=== PATIENT | female | born 1930 | race Caucasian/White ===

== ENCOUNTER 2017-04-20 13:19 | Emergency (ER) | payer MEDICARE, MEDICAID ==
[2017-04-20] MEDS ORDERED: 0.9 % SODIUM CHLORIDE 1,000 ML BAG IV ONE (14:40)
--- NOTE | 2017-04-20 14:44 | Emergency Department Record ---
History of Present Illness - General Chief complaint: Hypergylcemia Stated complaint: HIGH BLOOD SUGAR/ABDOMINAL PAIN Time Seen by Provider: 04/20/17 14:38 Source: Patient, Family Mode of Arrival: Ambulatory Limitations: No limitations - History of Present Illness Initial comments: 86 yo female presents with abdominal pain, nausea, some mild spitting up, loss of appetite. She has had some abdominal pain for several months. Her current pain is now left sided for the last 4 days that is different. She is having bowel movements that are small and firm. No blood. No fevers. She does have a history of SBO, Appy, jeet, hysterectomy. Her blood sugars are running above her baseline at the 200's. No hematuria. No rash on the abdomen. PCP is [facility]. GI is [facility], Surgery is [facility] Onset/Timin -: Week(s) Location: Other Severity: Moderate Severity scale (1-10): 4 Quality: Aching Consistency: Constant Improves with: None Worsens with: None Context: History of similar Associated Symptoms: Nausea/vomiting - [place] Coma Scale Eye Response: (4) Open spontaneously Motor Response: (6) Obeys commands Verbal Response: (5) Oriented [place] Total: 15 - Related Data Home Medications Medication Instructions Recorded Confirmed Last Taken Gabapentin [Neurontin] 400 mg PO BID 04/20/17 04/20/17 Unknown Insulin Aspart Protam & Aspart 6 unit SQ BIDINS 04/20/17 04/20/17 Unknown [Novolog Mix 70-30 Flexpen Syrn] Previous Rx's Medication Instructions Recorded Albuterol Sulfate 0.083% [Neb] 3 ml NEB Q4HR #120 07/20/16 Cephalexin [Keflex] 500 mg PO QID #28 cap 04/20/17 Allergies Allergy/AdvReac Type Severity Reaction Status Date / Time acetaminophen [From Vicodin] Allergy HYPERSENSIT Verified 04/20/17 14:29 IVITY codeine Allergy HIVES Verified 04/20/17 14:29 hydrocodone bitartrate Allergy HYPERSENSIT Verified 04/20/17 14:29 [From Vicodin] IVITY oxycodone HCl Allergy HYPERSENSIT Verified 04/20/17 14:29 [From OxyContin] IVITY Penicillins Allergy HIVES Verified 04/20/17 14:29 hydromorphone HCl AdvReac HYPERSENSIT Verified 04/20/17 14:29 [From Dilaudid] IVITY meperidine HCl [From Demerol] AdvReac HYPERSENSIT Verified 04/20/17 14:29 IVITY oxycodone [Oxycodone] AdvReac HYPERSENSIT Verified 04/20/17 14:29 IVITY Travel Screening - Travel/Exposure Within Last 30 Days Have you traveled within the last 30 days?: No Review of Systems Constitutional: Denies: Chills, Fever, Malaise, Weakness Eyes: Denies: Eye discharge ENT: Denies: Congestion, Throat pain Respiratory: Denies: Cough, Dyspnea, Hemoptysis, Stridor, Wheezes Cardiovascular: Denies: Chest pain, Palpitations, Syncope Endocrine: Reports: Fatigue. Denies: Polydipsia, Polyuria Gastrointestinal: Reports: Abdominal pain, Constipation, Diarrhea, Nausea, Vomiting. Denies: Hematemesis, Hematochezia, Melena Genitourinary: Reports: Dysuria, Frequency, Incontinence (chronic) Musculoskeletal: Denies: Arthralgia, Back pain, Joint swelling, Myalgia Skin: Denies: Bruising, Change in color, Rash Neurological: Denies: Confusion, Numbness, Weakness Psychiatric: Denies: Anxiety Hematological/Lymphatic: Denies: Blood Clots, Easy bleeding, Easy bruising, Swollen glands Past Medical History - SOCIAL HISTORY Smoking Status: Current every day smoker Alcohol Use: None Drug Use: None - RESPIRATORY Hx Respiratory Disorders: Yes Hx Asthma: No Hx Bronchitis: No Hx COPD: Yes Hx Dyspnea: Yes Hx Sleep Apnea: Yes Hx of CPAP: Yes Comment:: wears oxygen at night 3L - CARDIOVASCULAR Hx Cardio Disorders: Yes Hx Hypertension: Yes - NEURO Hx Neuro Disorders: Yes Hx TIA: Yes - GI Hx GI Disorders: Yes Hx Abdominal Pain: Yes Hx Obstructive Bowel: Yes - Hx Genitourinary Disorders: No - ENDOCRINE Hx Endocrine Disorders: Yes Hx Diabetes: Yes (Type II) - MUSCULOSKELETAL Hx Musculoskeletal Disorders: Yes Hx Arthritis: Yes Hx Fibromyalgia: Yes - PSYCH Hx Psych Problems: Yes Hx Anxiety: Yes Hx Depression: Yes - HEMATOLOGY/ONCOLOGY Hx Hematology/Oncology Disorders: Yes Hx Cancer: Yes (Breast cancer) Hx Radiation Therapy: Yes Family Medical History Any Significant Family History?: Yes Hx Alcohol Use: Father, Mother, Children Hx Cancer: Father, Grandparents Hx Depression: Mother Physical Exam - General General Appearance: Alert, Oriented x3, Cooperative, No acute distress Limitations: No limitations - Head Head exam: Atraumatic, Normal inspection - Eye Eye exam: Normal appearance, Conjunctival injection - ENT ENT exam: Normal exam, Mucous membranes moist Ear exam: Normal external inspection Nasal Exam: Normal inspection Mouth exam: Normal external inspection - Neck Neck exam: Normal inspection - Respiratory Respiratory exam: Normal lung sounds bilaterally. negative: Respiratory distress - Cardiovascular Cardiovascular Exam: Regular rate, Normal rhythm, Normal heart sounds Peripheral Pulses: 2+: Radial (R), Radial (L) - GI/Abdominal GI/Abdominal exam: Soft, Tenderness (mild LLQ tenderness on palpation). negative: Distended, Guarding, Rebound, Rigid - Rectal Rectal exam: Deferred - exam: Deferred - Extremities Extremities exam: Normal inspection, Full ROM, Normal capillary refill. negative: Tenderness - Back Back exam: Reports: Normal inspection. Denies: CVA tenderness (R), CVA tenderness (L) - Neurological Neurological exam: Alert, Oriented X3 - Psychiatric Psychiatric exam: Normal affect, Normal mood - Skin Skin exam: Dry, Intact, Normal color, Warm Course Vital Signs 04/20/17 14:20 Temperature 97.8 F Pulse Rate 112 H Respiratory 20 Rate Blood Pressure 142/88 Pulse Ox 91 L - Reevaluation(s) Reevaluation #1: The labs were reviewed Glucose is 299 with normal HCO3 and AG The US is consistent with UTI 04/20/17 16:19 The UA is consistent with infection with N+LE+,WBC+,Bacteria. The patient was given a dose of Rocephin in the ED The CT scan of the abdomen and pelvis was negative for acute process, no obstruction, no stones, very small left pleural effusion noted. Normal Kidneys. She will be DC home on antibiotics with a culture of the urine being sent. 04/20/17 18:31 04/20/17 18:34 Medical Decision Making - Lab Data Result diagrams: 04/20/17 15:20 04/20/17 15:20 Disposition Disposition: Discharge Clinical Impression: Urinary tract infection Qualifiers: Urinary tract infection type: acute cystitis Hematuria presence: without hematuria Qualified Code(s): N30.00 - Acute cystitis without hematuria Disposition: Home, Self-Care Condition: (1) Good Instructions: Urinary Tract Infection in Women (ED) Additional Instructions: Stay well hydrated Call your doctor for close follow up of your urinary tract infection and follow up of the culture of the urine Return to the ER if worse, fever, vomiting, diarrhea or any new concerns Prescriptions: Cephalexin [Keflex] 500 mg PO QID #28 cap Forms: Patient Portal Access Time of Disposition: 18:35 Quality - Quality Measures Quality Measures: N/A - Blood Pressure Screening Does Patient Have Any of the Following: No Blood Pressure Classification: Pre-Hypertensive BP Reading Systolic Measurement: 137 Diastolic Measurement: 57 Screening for High Blood Pressure: < Pre-Hypertensive BP, F/U Documented > [ G8950] Pre-Hypertensive Follow-up Interventions: Referral to alternative/primary care provider.
[2017-04-20 15:41] LABS: BASO % 0.4 % (0-6); EOS % 1.1 % (0-6); GRAN % 72.9 % (47-80); HEMATOCRIT 42.4 % (35.0-47.0); HEMOGLOBIN 13.8 gm/dl (11.6-16.0); MEAN CELL VOLUME 94.6 fl (81-97); MEAN CORPUSCULAR HEMOGLOBIN 30.8 pg (27-33); MEAN CORPUSCULAR HGB CONC 32.5 g/dl (32-36); MEAN PLATELET VOLUME 12.2 fl (7.4-10.4); MONO % 6.6 % (0-9); PLATELET COUNT 234 K/uL (130-400); RED BLOOD COUNT 4.48 M/uL (3.80-5.40); RED CELL DISTRIBUTION WIDTH 13.4 % (11.5-14.5); WHITE BLOOD COUNT W/O DIFF 8.3 K/uL (4.2-12.2)
[2017-04-20 15:50] LABS: URINE APPEARANCE CLEAR; URINE BILIRUBIN NEGATIVE (NEGATIVE); URINE BLOOD MODERATE (NEGATIVE); URINE COLOR YELLOW; URINE GLUCOSE (UA) NEGATIVE (NEGATIVE); URINE KETONE NEGATIVE (NEGATIVE); URINE LEUKOCYTE ESTERASE SMALL (NEGATIVE); URINE NITRITE POSITIVE (NEGATIVE); URINE PROTEIN NEGATIVE (NEGATIVE); URINE UROBILINOGEN 0.2 E.U./dL (0.20 - 1.00)
[2017-04-20 16:00] LABS: ALB/GLOB RATIO 1.3 (1.1-1.8); ALBUMIN 3.8 g/dL (4.0-5.0); ALKALINE PHOSPHATASE 96 U/L (35-104); ALT/SGPT 16 U/L (<33); AST/SGOT 24 U/L (10.0-35.0); BLOOD UREA NITROGEN 43.9 mg/dL (17.4-49.2); CREATININE 0.8 mg/dL (0.5-0.9); EST GLOMERULAR FILTRATION RATE > 60 mL/min; GLUCOSE,RANDOM 299 mg/dL (74-109); LIPASE 51 U/L (13-60); TOTAL PROTEIN 6.8 g/dL (6.6-8.7)
[2017-04-20 16:10] LABS: URINE BACTERIA 2+; URINE EPITHELIAL CELLS NONE SEEN (FEW)
[2017-04-20] MEDS ORDERED: CEFTRIAXONE SODIUM 1 GM in 0.9 % SODIUM CHLORIDE 100ML 100 ML IVPB ONE (16:20)
[2017-04-20] MEDS ORDERED: ALBUTEROL SULFATE (0.083%) 2.5 MG/3 ML NEB INH ONE (16:51)
--- NOTE | 2017-04-21 07:57 | CT SCAN REPORT ---
EXAM: CT OF THE ABDOMEN AND PELVIS WITH CONTRAST HISTORY: LEFT LOWER QUADRANT PAIN. TECHNIQUE: Sequential axial images were obtained from the diaphragms through the ischiorectal fossa after intravenous and oral administration of 100 ml of Omnipaque 300 contrast material. Sagittal and coronal reformatted images were performed. FINDINGS: There is a small left pleural effusion. There is chronic change in both lung bases. The liver appears normal. The gallbladder has been surgically removed. The pancreas and spleen appear normal. There is bilateral adrenal hyperplasia. There are benign appearing cysts in both kidneys. No CT findings suggestive of obstructive uropathy. The small bowel appears normal. There is colonic diverticulosis. No evidence of diverticulitis. The patient is status post ventral hernia repair. The urinary bladder appears normal. Postop surgical change in the left hip. There is osteopenia and degenerative change of the lumbar spine. Post vertebroplasty change at L2. IMPRESSION: 1. NO ACUTE ABDOMINAL OR PELVIC DISEASE PROCESS. THERE IS COLONIC DIVERTICULOSIS WITHOUT EVIDENCE OF DIVERTICULITIS. 2. THE PATIENT IS STATUS POST VENTRAL HERNIA REPAIR. 3. BENIGN APPEARING CYSTS IN BOTH KIDNEYS. 4. SMALL LEFT PLEURAL EFFUSION. CHRONIC CHANGE BOTH LUNG BASES. JOB NUMBER: [id number] [facility]
== END 2017-04-20 19:08 | disposition home or self-care (01) ==
LOC: ER 13:19
DX: N30.00 Acute cystitis without hematuria (principal); R11.2 Nausea with vomiting, unspecified; R10.32 Left lower quadrant pain; E11.9 Type 2 diabetes mellitus without complications; Z79.4 Long term (current) use of insulin; I10 Essential (primary) hypertension; F17.210 Nicotine dependence, cigarettes, uncomplicated
CPT/HCPCS: 99284 ×2; 96374; 96361; 83690; 85025; 80053; 81001; 74177; 94640; Q9967; J7030; J7613

== ENCOUNTER 2017-04-24 13:13 | Emergency (ER) | payer MEDICARE, MEDICAID ==
[2017-04-24 13:25] LABS: URINE APPEARANCE CLEAR; URINE BILIRUBIN NEGATIVE (NEGATIVE); URINE BLOOD NEGATIVE (NEGATIVE); URINE COLOR YELLOW; URINE GLUCOSE (UA) NEGATIVE (NEGATIVE); URINE KETONE NEGATIVE (NEGATIVE); URINE LEUKOCYTE ESTERASE NEGATIVE (NEGATIVE); URINE NITRITE NEGATIVE (NEGATIVE); URINE PROTEIN NEGATIVE (NEGATIVE); URINE UROBILINOGEN 0.2 E.U./dL (0.20 - 1.00)
--- NOTE | 2017-04-24 13:42 | Emergency Department Record ---
History of Present Illness - General Chief complaint: Fatigue and Weakness Stated complaint: recheck urine Time Seen by Provider: 04/24/17 13:27 Source: Patient Mode of Arrival: Ambulatory Limitations: No limitations - History of Present Illness Initial comments: The patient is here due to not feeling well for 5 days. She was in the ER here 4 days ago and had lab work, a UA, and an abdominal CT that only demonstrated a UTI. The culture did come back to day and was resistant to the Keflex so we did call the patient to return to the ER for recheck. She states she is feeling no better and is having trouble breathing, still fatigued, and weak. She is still having mild lower abdominal pain but denies any significant back pain, ANY chest pain, CP with exertion or cough. She also states her blood sugars are running in the 200's. Complaint: Generalized weakness Onset/Timin -: Days(s) Location: Generalized Severity scale (1-10): 6 Quality: Dull Consistency: Intermittent Improves with: None Worsens with: None Associated Symptoms: Loss of appetite, Shortness of breath - [place] Coma Scale Eye Response: (4) Open spontaneously Motor Response: (6) Obeys commands Verbal Response: (5) Oriented [place] Total: 15 - Related Data Previous Rx's Medication Instructions Recorded Albuterol Sulfate 0.083% [Neb] 3 ml NEB Q4HR #120 07/20/16 Cephalexin [Keflex] 500 mg PO QID #28 cap 04/20/17 Nitrofurantoin Ida [Macrobid] 100 mg PO BID #14 capsule 04/24/17 Allergies Allergy/AdvReac Type Severity Reaction Status Date / Time acetaminophen [From Vicodin] Allergy HYPERSENSIT Verified 04/24/17 13:23 IVITY codeine Allergy HIVES Verified 04/24/17 13:23 hydrocodone bitartrate Allergy HYPERSENSIT Verified 04/24/17 13:23 [From Vicodin] IVITY oxycodone HCl Allergy HYPERSENSIT Verified 04/24/17 13:23 [From OxyContin] IVITY Penicillins Allergy HIVES Verified 04/24/17 13:23 hydromorphone HCl AdvReac HYPERSENSIT Verified 04/24/17 13:23 [From Dilaudid] IVITY meperidine HCl [From Demerol] AdvReac HYPERSENSIT Verified 04/24/17 13:23 IVITY oxycodone [Oxycodone] AdvReac HYPERSENSIT Verified 04/24/17 13:23 IVITY Travel Screening - Travel/Exposure Within Last 30 Days Have you traveled within the last 30 days?: No - Travel/Exposure Within Last Year Have you traveled outside the [place] in the last year?: No - Additonal Travel Details Have you been exposed to anyone with a communicable illness?: No Review of Systems Constitutional: Reports: Malaise. Denies: Chills, Fever Eyes: Denies: Eye discharge ENT: Denies: Congestion Respiratory: Reports: Dyspnea. Denies: Cough Cardiovascular: Denies: Arrhythmia, Chest pain Endocrine: Reports: Fatigue Past Medical History - SOCIAL HISTORY Smoking Status: Current every day smoker Alcohol Use: None Drug Use: None - RESPIRATORY Hx Respiratory Disorders: Yes Hx Asthma: No Hx Bronchitis: No Hx COPD: Yes Hx Dyspnea: Yes Hx Sleep Apnea: Yes Hx of CPAP: Yes Comment:: wears oxygen at night 3L - CARDIOVASCULAR Hx Cardio Disorders: Yes Hx Hypertension: Yes - NEURO Hx Neuro Disorders: Yes Hx TIA: Yes - GI Hx GI Disorders: Yes Hx Abdominal Pain: Yes Hx Obstructive Bowel: Yes - Hx Genitourinary Disorders: No - ENDOCRINE Hx Endocrine Disorders: Yes Hx Diabetes: Yes (Type II) - MUSCULOSKELETAL Hx Musculoskeletal Disorders: Yes Hx Arthritis: Yes Hx Fibromyalgia: Yes - PSYCH Hx Psych Problems: Yes Hx Anxiety: Yes Hx Depression: Yes - HEMATOLOGY/ONCOLOGY Hx Hematology/Oncology Disorders: Yes Hx Cancer: Yes (Breast cancer) Hx Radiation Therapy: Yes Family Medical History Any Significant Family History?: Yes Hx Alcohol Use: Father, Mother, Children Hx Cancer: Father, Grandparents Hx Depression: Mother Physical Exam - General General Appearance: Alert, Oriented x3, Cooperative, No acute distress - Head Head exam: Atraumatic, Normocephalic, Normal inspection - Eye Eye exam: Normal appearance, PERRL - Neck Neck exam: Normal inspection, Full ROM. negative: Tenderness - Respiratory Respiratory exam: Rhonchi (mildly at the bases.). negative: Normal lung sounds bilaterally, Accessory muscle use, Decreased breath sounds, Rales, Respiratory distress - Cardiovascular Cardiovascular Exam: Regular rate, Normal rhythm, Normal heart sounds - GI/Abdominal GI/Abdominal exam: Soft, Normal bowel sounds. negative: Tenderness - Extremities Extremities exam: Normal inspection, Full ROM, Normal capillary refill. negative: Tenderness - Neurological Neurological exam: Alert, Normal gait (The patient is ambulating with her walker normally.). negative: Abnormal gait, Motor sensory deficit Course Vital Signs 04/24/17 13:23 Temperature 98.4 F Pulse Rate 107 H Respiratory 24 Rate Blood Pressure 141/108 Pulse Ox 94 L - Reevaluation(s) Reevaluation #1: We did recheck the patient's urine and it was normal. I did explain to the patient that due to the urine being normal I cannot attribute her complaints to a UTI. I also explained to her that to properly evaluate her fatigue, mild dyspnea, and weakness we would have to do a full evaluation including lab work, CXR, and at least an EKG. The patient is very reluctant to have ANYTHING done in the ER and is refusing. I explained to her that I can change her Abx but that really can not attribute her symptoms to the urine. I also explained to her that it could be anything from CHF, cardiac ischemia, pneumonia, or hypothyroid dz. By NOT doing the workup we could not be held liable for not properly diagnosing her symptoms and treating her illness. The patient has proper decision making capacity and understands and accepts the risks. She was told to see her PCP PING and to return to the ER for any problems or if she changes her mind about being evaluated further. 04/24/17 13:52 Medical Decision Making - Lab Data Lab Results 04/24/17 Range/Units 13:20 Urine Color Yellow Urine Appearance Clear Urine pH 6.0 (5.0-8.0) Ur Specific [place] <= 1.005 (1.002-1.030) Urine Protein Negative (NEGATIVE) Urine Glucose (UA) Negative (NEGATIVE) Urine Ketones Negative (NEGATIVE) Urine Blood Negative (NEGATIVE) Urine Nitrite Negative (NEGATIVE) Urine Bilirubin Negative (NEGATIVE) Urine Urobilinogen 0.2 (0.20 - 1.00) E.U./dL Ur Leukocyte Esterase Negative (NEGATIVE) Disposition Disposition: Discharge Clinical Impression: Urinary tract infection Qualifiers: Urinary tract infection type: site unspecified Hematuria presence: without hematuria Qualified Code(s): N39.0 - Urinary tract infection, site not specified Disposition: Home, Self-Care Condition: (2) Stable Instructions: Fatigue (ED) Additional Instructions: Please stop the Keflex and start the Macrobid. Please see your PCP later this week for recheck. Return to the ER for any worsening problems or if you change your mind about being evaluated further in the ED. Prescriptions: Nitrofurantoin Ida [Macrobid] 100 mg PO BID #14 capsule Forms: Patient Portal Access Time of Disposition: 13:44 Quality - Quality Measures Quality Measures: N/A - Blood Pressure Screening View Details: Yes Does Patient Have Any of the Following: No Blood Pressure Classification: Hypertensive Reading Systolic Measurement: 141 Diastolic Measurement: 108 Screening for High Blood Pressure: < Pre-Hypertensive BP, F/U Documented > [ G8950] Pre-Hypertensive Follow-up Interventions: Referral to alternative/primary care provider.
== END 2017-04-24 13:50 | disposition home or self-care (01) ==
LOC: ER 13:13
DX: N39.0 Urinary tract infection, site not specified (principal); R06.02 Shortness of breath
CPT/HCPCS: 81003; 99282

== ENCOUNTER 2017-05-11 14:44 | Emergency (ER) | payer MEDICARE, MEDICAID ==
--- NOTE | 2017-05-11 15:30 | Emergency Department Record ---
History of Present Illness - General Chief Complaint: Abdominal Pain Stated Complaint: ABD PAIN Time Seen by Provider: 05/11/17 15:13 Source: Patient Mode of Arrival: Wheelchair Limitations: No limitations - History of Present Illness Initial Comments: The patient is here due to L sided AP which has been present for a week but worse today. She has had 3-4 loose watery stools but no vomiting or fever. She does have a hx of UTI's and has had a ventral hernia repair in the past. She denies any CP, SOB, BELIA, or back pain. The patient was here in the ER 3 weeks ago for a UTI. MD Complaint: Abdominal pain Onset/Timin -: Week(s) Location: LUQ, LLQ Radiation: None Migration to: No migration Severity: Moderate Quality: Sharp Consistency: Constant Improves With: Nothing Worsens With: Movement Associated Symptoms: Denies other symptoms - Related Data Patient : No Home Medications Medication Instructions Recorded Confirmed Last Taken Ipratropium/Albuterol Sulfate 1 puff IH DAILY 05/11/17 05/11/17 Unknown [Combivent] Previous Rx's Medication Instructions Recorded Albuterol Sulfate 0.083% [Neb] 3 ml NEB Q4HR #120 07/20/16 Cephalexin [Keflex] 500 mg PO QID #28 cap 04/20/17 Nitrofurantoin [place] [Macrobid] 100 mg PO BID #14 capsule 04/24/17 Allergies Allergy/AdvReac Type Severity Reaction Status Date / Time acetaminophen [From Vicodin] Allergy HYPERSENSIT Verified 04/24/17 13:23 IVITY codeine Allergy HIVES Verified 04/24/17 13:23 hydrocodone bitartrate Allergy HYPERSENSIT Verified 04/24/17 13:23 [From Vicodin] IVITY oxycodone HCl Allergy HYPERSENSIT Verified 04/24/17 13:23 [From OxyContin] IVITY Penicillins Allergy HIVES Verified 04/24/17 13:23 hydromorphone HCl AdvReac HYPERSENSIT Verified 04/24/17 13:23 [From Dilaudid] IVITY meperidine HCl [From Demerol] AdvReac HYPERSENSIT Verified 04/24/17 13:23 IVITY oxycodone [Oxycodone] AdvReac HYPERSENSIT Verified 09/18/17 13:23 IVITY Travel Screening - Travel/Exposure Within Last 30 Days Have you traveled within the last 30 days?: No Review of Systems Constitutional: Denies: Chills, Fever Eyes: Denies: Eye discharge ENT: Denies: Congestion Respiratory: Denies: Cough, Dyspnea Past Medical History - SOCIAL HISTORY Smoking Status: Current every day smoker - RESPIRATORY Hx Respiratory Disorders: Yes Hx Asthma: No Hx Bronchitis: No Hx COPD: Yes Hx Dyspnea: Yes Hx Sleep Apnea: Yes Hx of CPAP: Yes Comment:: wears oxygen at night 3L - CARDIOVASCULAR Hx Cardio Disorders: Yes Hx Hypertension: Yes - NEURO Hx Neuro Disorders: Yes Hx TIA: Yes - GI Hx GI Disorders: Yes Hx Abdominal Pain: Yes Hx Obstructive Bowel: Yes - Hx Genitourinary Disorders: No - ENDOCRINE Hx Endocrine Disorders: Yes Hx Diabetes: Yes (Type II) - MUSCULOSKELETAL Hx Musculoskeletal Disorders: Yes Hx Arthritis: Yes Hx Fibromyalgia: Yes - PSYCH Hx Psych Problems: Yes Hx Anxiety: Yes Hx Depression: Yes - HEMATOLOGY/ONCOLOGY Hx Hematology/Oncology Disorders: Yes Hx Cancer: Yes (Breast cancer) Hx Radiation Therapy: Yes Family Medical History Any Significant Family History?: Yes Hx Alcohol Use: Father, Mother, Children Hx Cancer: Father, Grandparents Hx Depression: Mother Physical Exam - General General Appearance: Alert, Oriented x3, Cooperative, No acute distress - Head Head exam: Atraumatic, Normocephalic, Normal inspection - Eye Eye exam: Normal appearance, PERRL - Neck Neck exam: Normal inspection, Full ROM. negative: Tenderness - Respiratory Respiratory exam: Normal lung sounds bilaterally. negative: Respiratory distress - Cardiovascular Cardiovascular Exam: Regular rate, Normal rhythm, Normal heart sounds - GI/Abdominal GI/Abdominal exam: Soft, Tenderness (There is mild to moderate L sided abdominal tenderness.). negative: Distended, Rebound, Rigid - Extremities Extremities exam: Normal inspection, Full ROM, Normal capillary refill. negative: Tenderness Course Vital Signs 05/11/17 15:14 Temperature 98.7 F Pulse Rate 98 H Respiratory 20 Rate Blood Pressure 143/74 Pulse Ox 93 L - Reevaluation(s) Reevaluation #1: The patient is doing well. I did offer her pain medicine but she declined to due a past problem with narcotics. I explained to her that her workup was all negative. She is to see her PCP for recheck and to return to the ER for any worsening problems. 05/11/17 17:33 Medical Decision Making - Data Complexity MDM Data: Labs Ordered and/or Reviewed, X-Ray Ordered and/or Reviewed - Lab Data Result diagrams: 05/11/17 15:55 05/11/17 15:55 - Radiology Data Radiology results: Report reviewed (Abd CT: Neg for any acute abnormality) Disposition Disposition: Discharge Clinical Impression: Abdominal pain Qualifiers: Abdominal location: unspecified location Qualified Code(s): R10.9 - Unspecified abdominal pain Disposition: Home, Self-Care Condition: (2) Stable Instructions: Abdominal Pain (ED) Additional Instructions: Please continue your home pain medicines. Please see your PCP tomorrow if not better. Return to the ER for any increased pain, fever, or vomiting. Forms: Patient Portal Access Time of Disposition: 17:29 Quality - Quality Measures Quality Measures: N/A - Blood Pressure Screening View Details: Yes Does Patient Have Any of the Following: No Blood Pressure Classification: Pre-Hypertensive BP Reading Systolic Measurement: 138 Diastolic Measurement: 65 Screening for High Blood Pressure: < Pre-Hypertensive BP, F/U Documented > [ G8950] Pre-Hypertensive Follow-up Interventions: Referral to alternative/primary care provider.
[2017-05-11] MEDS: SODIUM CHLORIDE 0.9% 500 ML IV ONE (15:58)
[2017-05-11] MEDS: ONDANSETRON HCL IV 4 MG/2 ML VIAL IV ONE (15:58)
[2017-05-11 16:15] LABS: BASO % 0.5 % (0-6); EOS % 1.4 % (0-6); GRAN % 66.5 % (47-80); HEMATOCRIT 42.3 % (35.0-47.0); HEMOGLOBIN 14.1 gm/dl (11.6-16.0); MEAN CELL VOLUME 93.8 fl (81-97); MEAN CORPUSCULAR HEMOGLOBIN 31.3 pg (27-33); MEAN CORPUSCULAR HGB CONC 33.3 g/dl (32-36); MEAN PLATELET VOLUME 12.1 fl (7.4-10.4); MONO % 8.6 % (0-9); PLATELET COUNT 270 K/uL (130-400); RED BLOOD COUNT 4.51 M/uL (3.80-5.40); RED CELL DISTRIBUTION WIDTH 13.3 % (11.5-14.5); WHITE BLOOD COUNT W/O DIFF 8.8 K/uL (4.2-12.2)
[2017-05-11 16:29] LABS: ALBUMIN 4.1 g/dL (4.0-5.0); ALKALINE PHOSPHATASE 99 U/L (35-104); ALT/SGPT 23 U/L (<33); AST/SGOT 26 U/L (10.0-35.0); BILIRUBIN,DIRECT 0.2 mg/dL (0-0.3); BLOOD UREA NITROGEN 19 mg/dL (8-23); CREATININE 0.7 mg/dL (0.5-0.9); EST GLOMERULAR FILTRATION RATE > 60 mL/min; GLUCOSE,RANDOM 187 mg/dL (74-109); LIPASE 56 U/L (13-60); TOTAL PROTEIN 7.3 g/dL (6.6-8.7)
[2017-05-11 16:37] LABS: URINE APPEARANCE CLEAR; URINE BILIRUBIN NEGATIVE (NEGATIVE); URINE BLOOD NEGATIVE (NEGATIVE); URINE COLOR YELLOW; URINE GLUCOSE (UA) NEGATIVE (NEGATIVE); URINE KETONE NEGATIVE (NEGATIVE); URINE LEUKOCYTE ESTERASE NEGATIVE (NEGATIVE); URINE NITRITE NEGATIVE (NEGATIVE); URINE PROTEIN NEGATIVE (NEGATIVE); URINE UROBILINOGEN 0.2 E.U./dL (0.20 - 1.00)
--- NOTE | 2017-05-13 09:09 | CT SCAN REPORT ---
DATE: 05/11/2017 at 16:08. EXAM: ABDOMEN AND PELVIS CT WITHOUT INTRAVENOUS CONTRAST. HISTORY: Acute left lower quadrant abdominal pain for two weeks. COMPARISON: Abdomen and pelvis CT dated 06/22/2016. TECHNIQUE: Contiguous axial images from the lung bases to the symphysis pubis were obtained without intravenous contrast. FINDINGS: Subpleural linear scarring of a mild to moderate degree at both lung bases. 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 Evaluation of the solid abdominal visceral organs is compromised due to lack of intravenous contrast. The liver and spleen are unremarkable. The kidneys reveal no calculi or hydronephrosis. Two hyperdense, exophytic foci in the right kidney, the largest in the mid to lower pole measuring 14 mm, unchanged. At least three similar findings in the upper pole of the left kidney measuring 11 mm unchanged. Unilocular cyst in the mid left kidney measures 2.0 cm. Stable left adrenal nodule measuring 2.2 cm consistent with benign adenoma. The pancreas is unremarkable. The gallbladder is absent. The visualized loops of small and large bowel are of normal caliber. Mild sigmoid colon diverticulosis with no evidence of acute diverticulitis. The appendix is not seen, although there are no pericecal inflammatory changes. Severe aortic calcification status post aortobifemoral bypass. No free intraperitoneal fluid or adenopathy. Mesh material along the mid ventral abdominal wall. Status post left hip arthroplasty. Bone cement in the L2 vertebral body. No lytic or blastic lesion. Severe disc disease at L3-4. IMPRESSION: 1. NO ACUTE INFLAMMATORY PROCESS OF THE ABDOMEN OR PELVIS. 2. NO INTESTINAL OBSTRUCTION. 3. MILD COLONIC DIVERTICULOSIS. 4. STATUS POST AORTOBIFEMORAL BYPASS. 5. BENIGN LEFT ADRENAL ADENOMA. 6. 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 J[facility]BER: [id number] [facility]
== END 2017-05-11 17:38 | disposition home or self-care (01) ==
LOC: ER 14:44
DX: R10.32 Left lower quadrant pain (principal); R10.12 Left upper quadrant pain; R19.7 Diarrhea, unspecified
CPT/HCPCS: 99284 ×2; 96374; 83605; 83690; 85025; 80076; 80048; 81003; 74176; J2405

== ENCOUNTER 2018-03-03 10:39 | Emergency (ER) | payer MEDICARE, MEDICAID ==
--- NOTE | 2018-03-03 12:07 | Emergency Department Record ---
History of Present Illness - General Chief complaint: Nausea, Vomiting, Diarrhea Stated complaint: NAUSEA,DIARRHEA,CONFUSION,BELIA Time Seen by Provider: 03/03/18 11:34 Source: Patient, RN notes reviewed Mode of Arrival: EMS - History of Present Illness Initial comments: patient weak and tired this am and nauseated and dry heaves slight pain in the right upper quad and PSH GB, appendectomy and hysterectomy. PCP Dr. Loida Ashford. COPD home oxygen at 4 liters per minute Onset/Timin -: Days(s) Associated Abdominal Pain: Yes Severity: Mild Severity scale (1-10): 4 Quality: Aching Consistency: Constant - Related Data Home Medications Medication Instructions Recorded Confirmed Last Taken Albuterol Sulfate 0.083% [Neb] 3 ml NEB .EVERY 4-6 HOURS PRN 03/03/18 03/03/18 1 Day Ago ~03/02/18 Previous Rx's Medication Instructions Recorded Albuterol Sulfate 0.083% [Neb] 3 ml NEB Q4HR #120 07/20/16 Omeprazole 20 mg PO DAILY #30 cap. 03/03/18 Ondansetron HCl [Zofran] 4 mg PO Q6HR #14 tablet 03/03/18 Allergies Allergy/AdvReac Type Severity Reaction Status Date / Time acetaminophen [From Vicodin] Allergy HYPERSENSIT Verified 03/03/18 10:54 IVITY codeine Allergy HIVES Verified 03/03/18 10:54 hydrocodone bitartrate Allergy HYPERSENSIT Verified 03/03/18 10:54 [From Vicodin] IVITY oxycodone HCl Allergy HYPERSENSIT Verified 03/03/18 10:54 [From OxyContin] IVITY Penicillins Allergy HIVES Verified 03/03/18 10:54 hydromorphone HCl AdvReac HYPERSENSIT Verified 03/03/18 10:54 [From Dilaudid] IVITY meperidine HCl [From Demerol] AdvReac HYPERSENSIT Verified 03/03/18 10:54 IVITY oxycodone [Oxycodone] AdvReac HYPERSENSIT Verified 03/03/18 10:54 IVITY Travel Screening - Travel/Exposure Within Last 30 Days Have you traveled within the last 30 days?: No - Travel/Exposure Within Last Year Have you traveled outside the [place] in the last year?: No - Additonal Travel Details Have you been exposed to anyone with a communicable illness?: No - Travel Symptoms Symptom Screening: None Review of Systems Reviewed: No additional complaints except as noted below Constitutional: Reports: As per HPI. Denies: Chills, Fever, Malaise, Night sweats, Weakness, Weight change Eyes: Reports: As per HPI. Denies: Eye discharge, Eye pain, Photophobia, Vision change ENT: Reports: As per HPI. Denies: Congestion, Dental pain, Ear pain, Epistaxis , Hearing loss, Throat pain Respiratory: Reports: As per HPI. Denies: Cough, Dyspnea, Hemoptysis, Stridor, Wheezes Cardiovascular: Reports: As per HPI. Denies: Arrhythmia, Chest pain, Dyspnea on exertion, Edema, Murmurs, Orthopnea, Palpitations, Paroxysmal nocturnal dyspnea, Rheumatic Fever, Syncope Endocrine: Reports: As per HPI. Denies: Fatigue, Heat or cold intolerance, Polydipsia, Polyuria Gastrointestinal: Reports: As per HPI. Denies: Abdominal pain, Constipation, Diarrhea, Hematemesis, Hematochezia, Melena, Nausea, Vomiting Genitourinary: Reports: As per HPI. Denies: Abnormal menses, Discharge, Dyspareunia, Dysuria, Frequency, Hematuria, Incontinence, Retention, Urgency Musculoskeletal: Reports: As per HPI. Denies: Arthralgia, Back pain, Gout, Joint swelling, Myalgia, Neck pain Skin: Reports: As per HPI. Denies: Bruising, Change in color, Change in hair/ nails, Lesions, Pruritus, Rash Neurological: Reports: As per HPI. Denies: Abnormal gait, Confusion, Headache, Numbness, Paresthesias, Seizure, Tingling, Tremors, Vertigo, Weakness Psychiatric: Reports: As per HPI. Denies: Anxiety, Auditory hallucinations, Depression, Homicidal thoughts, Suicidal thoughts, Visual hallucinations Hematological/Lymphatic: Reports: As per HPI. Denies: Anemia, Blood Clots, Easy bleeding, Easy bruising, Swollen glands Past Medical History - SOCIAL HISTORY Smoking Status: Current every day smoker Alcohol Use: None Drug Use: None - RESPIRATORY Hx Respiratory Disorders: Yes Hx Asthma: No Hx Bronchitis: No Hx COPD: Yes Hx Dyspnea: Yes Hx Sleep Apnea: Yes Hx of CPAP: Yes Comment:: wears oxygen at night 3L - CARDIOVASCULAR Hx Cardio Disorders: Yes Hx Hypertension: Yes - NEURO Hx Neuro Disorders: Yes Hx TIA: Yes - GI Hx GI Disorders: Yes Hx Abdominal Pain: Yes Hx Obstructive Bowel: Yes - Hx Genitourinary Disorders: No - ENDOCRINE Hx Endocrine Disorders: Yes Hx Diabetes: Yes (Type II) - MUSCULOSKELETAL Hx Musculoskeletal Disorders: Yes Hx Arthritis: Yes Hx Fibromyalgia: Yes - PSYCH Hx Psych Problems: Yes Hx Anxiety: Yes Hx Depression: Yes - HEMATOLOGY/ONCOLOGY Hx Hematology/Oncology Disorders: Yes Hx Cancer: Yes (Breast cancer) Hx Radiation Therapy: Yes Family Medical History Any Significant Family History?: Yes Hx Alcohol Use: Father, Mother, Children Hx Cancer: Father, Grandparents Hx Depression: Mother Physical Exam - General General Appearance: Alert, Oriented x3, Cooperative, No acute distress - Head Head exam: Normal inspection - Eye Eye exam: Normal appearance, PERRL Pupils: Normal accommodation - ENT ENT exam: Normal exam, Mucous membranes moist, Normal external ear exam, Normal orophraynx, TM's normal bilaterally Ear exam: Normal external inspection. negative: External canal tenderness Nasal Exam: Normal inspection. negative: Discharge, Sinus tenderness Mouth exam: Normal external inspection, Tongue normal Teeth exam: Normal inspection. negative: Dental caries Throat exam: Normal inspection. negative: Tonsillar erythema, Tonsillar exudate - Neck Neck exam: Normal inspection, Full ROM. negative: Tenderness - Respiratory Respiratory exam: Normal lung sounds bilaterally. negative: Respiratory distress - Cardiovascular Cardiovascular Exam: Regular rate, Normal rhythm, Normal heart sounds - GI/Abdominal GI/Abdominal exam: Soft, Normal bowel sounds, Tenderness (right upper quad pain mild , no rebound ,norigidity, no PS) - Rectal Rectal exam: Deferred - exam: Deferred - Extremities Extremities exam: Normal inspection, Full ROM, Normal capillary refill. negative: Tenderness - Back Back exam: Reports: Normal inspection, Full ROM. 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 ] Respiratory 17 20 Rate Blood Pressure 154/69 Blood Pressure 154/69 [Left Arm] Pulse Ox 96 98 Medical Decision Making - Data Complexity MDM Data: Labs Ordered and/or Reviewed (lipase 138), X-Ray Ordered and/or Reviewed (No signs of obstruction, Right lower lobe nodule needs CT as an outpatient) - Lab Data Result diagrams: 03/03/18 11:10 03/03/18 11:10 Disposition Clinical Impression: Nausea, Viral syndrome Disposition: Home, Self-Care Condition: (2) Stable Instructions: Acute Nausea and Vomiting (ED), Gastroenteritis (ED) Additional Instructions: clear liquids today today and bland foods tomorrow follow up with primary DR. in 5 days sooner if worse Prescriptions: Ondansetron HCl [Zofran] 4 mg PO Q6HR #14 tablet Omeprazole 20 mg PO DAILY #30 cap.dr Forms: Patient Portal Access Time of Disposition: 15:00 Quality - Quality Measures Quality Measures: N/A - Blood Pressure Screening Does Patient Have Any of the Following: No Blood Pressure Classification: Hypertensive Reading Systolic Measurement: 154 Diastolic Measurement: 69 Screening for High Blood Pressure: < First Hypertensive BP, F/U Documented > [ G8950] First Hypertensive Follow-up Interventions: Referral to alternative/primary care provider.
[2018-03-03 12:34] LABS: BASO % 0.4 % (0-6); EOS % 1.9 % (0-6); GRAN % 75.5 % (47-80); HEMATOCRIT 41.6 % (35.0-47.0); HEMOGLOBIN 13.4 gm/dl (11.6-16.0); LYMPH % 14.6 % (16-45); MEAN CELL VOLUME 97.2 fl (81-97); MEAN CORPUSCULAR HEMOGLOBIN 31.3 pg (27-33); MEAN CORPUSCULAR HGB CONC 32.2 g/dl (32-36); MEAN PLATELET VOLUME 12.4 fl (7.4-10.4); MONO % 7.6 % (0-9); PLATELET COUNT 294 K/uL (130-400); RED BLOOD COUNT 4.28 M/uL (3.80-5.40); RED CELL DISTRIBUTION WIDTH 12.9 % (11.5-14.5); WHITE BLOOD COUNT W/O DIFF 6.8 K/uL (4.2-12.2)
[2018-03-03 12:44] LABS: BLOOD UREA NITROGEN 27 mg/dL (8-23); CREATININE 0.7 mg/dL (0.5-0.9); EST GLOMERULAR FILTRATION RATE > 60 mL/min
[2018-03-03 12:45] LABS: TOTAL PROTEIN 7.5 g/dL (6.6-8.7)
[2018-03-03 12:47] LABS: GLUCOSE,RANDOM 162 mg/dL (74-109)
[2018-03-03 12:50] LABS: ALBUMIN 4.1 g/dL (4.0-5.0); ALKALINE PHOSPHATASE 142 U/L (35-104); ALT/SGPT 19 U/L (<33); AST/SGOT 22 U/L (10.0-35.0); LIPASE 138 U/L (13-60)
[2018-03-03 12:53] LABS: BILIRUBIN,DIRECT < 0.2 mg/dL (0-0.3)
[2018-03-03] MEDS ORDERED: 0.9 % SODIUM CHLORIDE 1000ML 1,000 ML IV ONE (13:19)
[2018-03-03] MEDS ORDERED: 0.9 % SODIUM CHLORIDE 500ML 500 ML IV SCH (13:30)
[2018-03-03 14:12] LABS: URINE APPEARANCE CLEAR; URINE BILIRUBIN NEGATIVE (NEGATIVE); URINE BLOOD NEGATIVE (NEGATIVE); URINE COLOR YELLOW; URINE GLUCOSE (UA) NEGATIVE (NEGATIVE); URINE KETONE NEGATIVE (NEGATIVE); URINE LEUKOCYTE ESTERASE NEGATIVE (NEGATIVE); URINE NITRITE NEGATIVE (NEGATIVE); URINE PROTEIN NEGATIVE (NEGATIVE); URINE UROBILINOGEN 0.2 E.U./dL (0.20 - 1.00)
[2018-03-03] MEDS ORDERED: ONDANSETRON HCL IV 4 MG/2 ML VIAL IVP ONE (14:51)
--- NOTE | 2018-03-04 20:36 | RADIOLOGY REPORT ---
EXAM: KNEE, RIGHT 3 VIEWS HISTORY: PAIN AND SWELLING.. TECHNIQUE: Three views of the right knee. COMPARISON: None. ENCOUNTER: Initial. FINDINGS: Three views of the right knee show normal alignment of the total joint arthroplasty. No lucency surrounding the components. No fracture. No joint effusion. Osteopenia noted. IMPRESSION: NO ACUTE ABNORMALITIES IN THE RIGHT KNEE WITH ARTHROPLASTY IN PLACE. JOB NUMBER: [id number] [facility]
--- NOTE | 2018-03-04 20:41 | RADIOLOGY REPORT ---
EXAM: ABDOMEN, ACUTE SERIES HISTORY: LEFT SIDE ABDOMINAL PAIN AND DIARRHEA. COMPARISON: CT abdomen and pelvis without contrast 05/11/2017. FINDINGS: Chest: Lung volumes are large with linear bands of scar in both lung bases. No pleural effusion or pneumothorax. Cardiomediastinal silhouette is within normal limits. There is an ill-defined opacity in the right lower lateral chest overlying the anterior right seventh rib. Abdomen: Mildly distended small bowel, similar to previous exam. There is gas in the colon. No air fluid levels. Several surgical clips are seen in the abdominal wall from previous hernia repair. Total left hip arthroplasty. Degenerative changes of the spine. There is no evidence of free air. IMPRESSION: 1. FINDINGS OF COPD. THERE MAY BE A NODULE IN THE RIGHT LOWER LUNG. CONSIDER FOLLOW-UP WITH CT SCAN OF THE THORAX WITHOUT CONTRAST, WHICH CAN BE DONE ON A NON-URGENT BASIS. 2. NONSPECIFIC BOWEL GAS PATTERN WITHOUT EVIDENCE OF MECHANICAL BOWEL OBSTRUCTION. JOB NUMBER: [id number] [facility]
== END 2018-03-03 15:43 | disposition home or self-care (01) ==
LOC: ER 10:39
DX: R11.0 Nausea (principal); B34.9 Viral infection, unspecified; E11.9 Type 2 diabetes mellitus without complications; Z79.84 Long term (current) use of oral hypoglycemic drugs; F17.210 Nicotine dependence, cigarettes, uncomplicated; J44.9 Chronic obstructive pulmonary disease, unspecified; M79.7 Fibromyalgia
CPT/HCPCS: 74022; 80048; 80076; 81003; 83690; 85025; 93005; 93010; 96361; 96374; 99284; J2405; J7040

== ENCOUNTER 2018-11-24 23:56 | Emergency (ER) | payer MEDICARE, MEDICAID ==
[2018-11-25] MEDS ORDERED: IPRATROPIUM/ALBUTEROL (0.5MG/3MG) NEB INH ONE (00:28)
[2018-11-25] MEDS ORDERED: ALBUTEROL SULFATE (0.083%) 2.5 MG/3 ML NEB INH ONE (00:33)
[2018-11-25 00:38] LABS: BASO % 0.6 % (0-6); EOS % 1.4 % (0-6); GRAN % 66.6 % (47-80); HEMATOCRIT 41.2 % (35.0-47.0); HEMOGLOBIN 12.8 gm/dl (11.6-16.0); LYMPH % 23.4 % (16-45); MEAN CELL VOLUME 97.2 fl (81-97); MEAN CORPUSCULAR HEMOGLOBIN 30.2 pg (27-33); MEAN CORPUSCULAR HGB CONC 31.1 g/dl (32-36); MEAN PLATELET VOLUME 11.4 fl (7.4-10.4); PLATELET COUNT 301 K/uL (130-400); RED BLOOD COUNT 4.24 M/uL (3.80-5.40); RED CELL DISTRIBUTION WIDTH 13.5 % (11.5-14.5)
--- NOTE | 2018-11-25 00:38 | Emergency Department Record ---
History of Present Illness - General Chief Complaint: Shortness of breath Stated Complaint: BELIA Time Seen by Provider: 11/25/18 00:05 Source: Patient Mode of Arrival: Ambulatory Limitations: No limitations - History of Present Illness Initial Comments: The patient is here due to her home oxygen pulse oximeter was reading low when she was walking today. The patient has a long hx of chronic lung dz and is on 4 liters of oxygen at all times. She states her biox is running 70% when she was ambulating but she had no worse SOB or BELIA than she normally does. Because the number was running low she decided to come to the ER. She denies any recent CP, fever, chills, worse cough, back pain or any worse BONILLA than normal. Complaint: Shortness of breath Onset/Timin -: Hour(s) Consistency: Constant Improves With: Oxygen, Rest Worsens With: Coughing, Exertion Known History Of: COPD Associated Symptoms: Cough, Sputum production Treatments Prior to Arrival: Oxygen - Related Data Home Oxygen Therapy: Yes Home Oxygen Amount: 4 Liters Previous Rx's Medication Instructions Recorded Albuterol Sulfate 0.083% [Neb] 3 ml NEB Q4HR #120 07/20/16 [Albuterol Sulfate] Omeprazole 20 mg PO DAILY #30 03/03/18 Ondansetron HCl [Zofran] 4 mg PO Q6HR #14 tablet 03/03/18 Allergies Allergy/AdvReac Type Severity Reaction Status Date / Time acetaminophen [From Vicodin] Allergy HYPERSENSIT Verified 03/03/18 10:54 IVITY codeine Allergy HIVES Verified 03/03/18 10:54 hydrocodone bitartrate Allergy HYPERSENSIT Verified 03/03/18 10:54 [From Vicodin] IVITY oxycodone HCl Allergy HYPERSENSIT Verified 03/03/18 10:54 [From OxyContin] IVITY Penicillins Allergy HIVES Verified 03/03/18 10:54 hydromorphone HCl AdvReac HYPERSENSIT Verified 03/03/18 10:54 [From Dilaudid] IVITY meperidine HCl [From Demerol] AdvReac HYPERSENSIT Verified 03/03/18 10:54 IVITY oxycodone [Oxycodone] AdvReac HYPERSENSIT Verified 03/03/18 10:54 IVITY Travel Screening - Travel/Exposure Within Last 30 Days Have you traveled within the last 30 days?: No - Travel Symptoms Symptom Screening: Fever (Subjective) Review of Systems Constitutional: Denies: Chills, Fever Eyes: Denies: Eye discharge ENT: Denies: Congestion Respiratory: Reports: Dyspnea (chronic.). Denies: Cough, Hemoptysis Cardiovascular: Denies: Arrhythmia, Chest pain Endocrine: Reports: Fatigue Gastrointestinal: Denies: Nausea Genitourinary: Denies: Dysuria Musculoskeletal: Denies: Arthralgia Neurological: Denies: Abnormal gait Past Medical History - SOCIAL HISTORY Smoking Status: Current every day smoker Alcohol Use: None Drug Use: None - RESPIRATORY Hx Respiratory Disorders: Yes Hx Asthma: No Hx Bronchitis: No Hx COPD: Yes Hx Dyspnea: Yes Hx Sleep Apnea: Yes Hx of CPAP: Yes Comment:: wears oxygen at night 3L - CARDIOVASCULAR Hx Cardio Disorders: Yes Hx Hypertension: Yes - NEURO Hx Neuro Disorders: Yes Hx TIA: Yes - GI Hx GI Disorders: Yes Hx Abdominal Pain: Yes Hx Obstructive Bowel: Yes - Hx Genitourinary Disorders: No - ENDOCRINE Hx Endocrine Disorders: Yes Hx Diabetes: Yes (Type II) - MUSCULOSKELETAL Hx Musculoskeletal Disorders: Yes Hx Arthritis: Yes Hx Fibromyalgia: Yes - PSYCH Hx Psych Problems: Yes Hx Anxiety: Yes Hx Depression: Yes - HEMATOLOGY/ONCOLOGY Hx Hematology/Oncology Disorders: Yes Hx Cancer: Yes (Breast cancer) Hx Radiation Therapy: Yes Family Medical History Any Significant Family History?: Yes Hx Alcohol Use: Father, Mother, Children Hx Cancer: Father, Grandparents Hx Depression: Mother Physical Exam - General General Appearance: Alert, Oriented x3, Cooperative, No acute distress - Head Head exam: Atraumatic, Normocephalic, Normal inspection - Eye Eye exam: Normal appearance, PERRL, EOMI - ENT Throat exam: Normal inspection. negative: Tonsillar erythema, Tonsillar exudate - Neck Neck exam: Normal inspection, Full ROM. negative: Tenderness - Respiratory Respiratory exam: Decreased breath sounds (at the bases mildly but no wheezing or rhonchi is appreciated.). negative: Normal lung sounds bilaterally, Accessory muscle use, Chest wall tenderness, Rales, Respiratory distress, Rhonchi, Stridor, Wheezes - Cardiovascular Cardiovascular Exam: Regular rate, Normal rhythm, Normal heart sounds - GI/Abdominal GI/Abdominal exam: Soft, Normal bowel sounds. negative: Tenderness - Extremities Extremities exam: Normal inspection, Full ROM, Normal capillary refill. negative: Pedal edema, Tenderness - Neurological Neurological exam: Alert, Normal gait. negative: Abnormal gait, Motor sensory deficit Course Vital Signs 11/25/18 00:00 Temperature 98.8 F Pulse Rate 109 H Respiratory 24 Rate Blood Pressure 148/80 Pulse Ox 95 - Reevaluation(s) Reevaluation #1: We did do an ambulatory biox here in the ER prior to any treatment and it was quite normal at 90-92%. I did explain to the patient the most likely cause of her issue is that her home boix is not functioning properly. 11/25/18 00:40 Reevaluation #2: The patient is doing very well at this time. She is resting comfortably with no new cough or congestion. I did discuss the lab results which appear normal and the CXR that may have a very early infiltrate in the RLL. Due to the patient having no change in her cough, no fever or WBC elevation I am not convinced it is clinically relevant. When I did present these facts to the patient she is refusing to take an oral Abx. She is to see her PCP next week for recheck. 11/25/18 01:35 Medical Decision Making - Data Complexity MDM Data: Labs Ordered and/or Reviewed, X-Ray Ordered and/or Reviewed, EKG Ordered and/or Reviewed - Lab Data Result diagrams: 11/25/18 00:27 11/25/18 00:27 - EKG Data -: EKG Interpreted by Me EKG: No Acute Changes, Unchanged From Previous - Radiology Data Radiology results: Image reviewed -: Radiology Exam Interpreted by Myself (CXR: Neg for acute changes. Possible early infiltrate RLL.) Disposition Disposition: Discharge Clinical Impression: COPD (chronic obstructive pulmonary disease) Qualifiers: COPD type: unspecified COPD Qualified Code(s): J44.9 - Chronic obstructive pulmonary disease, unspecified Disposition: Home, Self-Care Condition: (2) Stable Instructions: Dyspnea (ED) Additional Instructions: Please continue your regular medicines and please see your family doctor next week for recheck. Return to the ER for any worsening symptoms. Forms: Patient Portal Access Time of Disposition: 01:38 Quality - Quality Measures Quality Measures: N/A - Blood Pressure Screening View Details: Yes Does Patient Have Any of the Following: No Blood Pressure Classification: Pre-Hypertensive BP Reading Systolic Measurement: 148 Diastolic Measurement: 80 Screening for High Blood Pressure: < Pre-Hypertensive BP, F/U Documented > [ G8950] Pre-Hypertensive Follow-up Interventions: Referral to alternative/primary care provider.
[2018-11-25 00:48] LABS: BLOOD UREA NITROGEN 40 mg/dL (8-23)
[2018-11-25 00:49] LABS: CREATININE 0.8 mg/dL (0.5-0.9); EST GLOMERULAR FILTRATION RATE > 60 mL/min
[2018-11-25 00:51] LABS: GLUCOSE,RANDOM 136 mg/dL (74-109)
== END 2018-11-25 01:56 | disposition home or self-care (01) ==
LOC: ER 23:56
DX: J44.9 Chronic obstructive pulmonary disease, unspecified (principal); R06.02 Shortness of breath; E11.9 Type 2 diabetes mellitus without complications; I10 Essential (primary) hypertension; F17.290 Nicotine dependence, other tobacco product, uncomplicated; Z99.81 Dependence on supplemental oxygen; Z79.4 Long term (current) use of insulin
CPT/HCPCS: 71046; 80048; 83880; 84484; 85025; 93005; 93010; 94618; 99283; 99284; J7613